=== PATIENT | female | born 1950 | race Caucasian/White ===

== ENCOUNTER 2017-10-06 01:49 | Emergency (ER) | payer MEDICARE, MEDICAID ==
[2017-10-06] MEDS ORDERED: diPHENhydraMINE PO* 25 MG PO ONE (02:17)
[2017-10-06] MEDS ORDERED: Triamcinolone 0.5% OINT * 15 GM TUBE TOPICAL ONE (02:22)
--- NOTE | 2017-10-06 02:28 | ED ---
Allergic Reaction/Systemic - HPI Summary HPI Summary: Patient is an otherwise healthy 67-year-old female he denies any known allergies presenting to the ED with erythema to the chin and to the left eye. She feels that there may have been poison oak to the area. There was a small amount of serous yellow drainage from 2 small blisters which erupted 2 days ago. History of cellulitis to the face, but states this feels different. She denies any visual changes. She has tried calamine lotion without relief. Denies any other symptoms including fevers, sweats, chills. Denies change of soaps, detergents or other allergic contacts. - History of Current Complaint Chief Complaint: EDRashSkinAbscess Time Seen by Provider: 10/06/17 02:04 Hx Obtained From: Patient Onset/Duration: Sudden Onset Timing: Constant Severity Initially: Moderate Severity Currently: Moderate Pain Intensity: 6 Pain Scale Used: 0-10 Numeric Location: Discrete @ - chin and left eye Alleviating Factor(s): Cold Associated Signs And Symptoms: Positive: Negative - Related Hx Possible Reaction To: Environmental Exposure - Allergies/Home Medications Allergies/Adverse Reactions: Allergies Allergy/AdvReac Type Severity Reaction Status Date / Time No Known Allergies Allergy Verified 10/18/14 12:38 PMH/Surg Hx/FS Hx/Imm Hx Previously Healthy: Yes Endocrine/Hematology History: Denies: Hx Diabetes Cardiovascular History: Reports: Hx Hypertension - not on meds Denies: Hx Congestive Heart Failure Respiratory History: Reports: Hx Asthma, Hx Chronic Obstructive Pulmonary Disease (COPD) History: Denies: Hx Renal Disease - Surgical History Surgery Procedure, Year, and Place: tubal; elective Ab; left 2nd finger - Immunization History Hx Pertussis Vaccination: No Immunizations Up to Date: Unable to Obtain/Confirm Infectious Disease History: No Infectious Disease History: Denies: Hx Clostridium Difficile, Hx Hepatitis, Hx Human Immunodeficiency Virus (HIV), Hx of Known/Suspected MRSA, Hx Shingles, Hx Tuberculosis, Hx Known/ Suspected VRE, Hx Known/Suspected VRSA, History Other Infectious Disease, Traveled Outside the [place] in Last 30 Days - Social History Occupation: Unemployed Lives: With Family Alcohol Use: Daily Alcohol Amount: 5 beers/day Hx Substance Use: No Substance Use Type: Reports: None Hx Tobacco Use: Yes Smoking Status (MU): Heavy Every Day Tobacco Smoker Amount Used/How Often: less than 1 ppd Review of Systems Constitutional: Negative Negative: Fever, Chills, Fatigue, Skin Diaphoresis Negative: Palpitations, Chest Pain Negative: Shortness Of Breath, Cough Genitourinary: Negative Positive: no symptoms reported, see HPI Negative: Arthralgia, Myalgia Positive: Rash - chin and left eye Neurological: Negative All Other Systems Reviewed And Are Negative: Yes Physical Exam Triage Information Reviewed: Yes Vital Signs On Initial Exam: Initial Vitals Temp Pulse Resp BP Pulse Ox 97.7 F 66 20 184/93 97 10/06/17 01:52 10/06/17 01:52 10/06/17 01:52 10/06/17 01:52 10/06/17 01:52 Vital Signs Reviewed: Yes Appearance: Positive: Well-Appearing, Well-Nourished Skin: Positive: Warm, Skin Color Reflects Adequate Perfusion, Other - serous yellow drainage from 2 small blisters inside a surrounding erythematous slightly raised area to the chin resembling a poison oak contact dermatitis Head/Face: Positive: Normal Head/Face Inspection Eyes: Positive: EOMI, TONI, Conjunctiva Clear, Other: - no conjunctival injection Neck: Positive: Supple, No Lymphadenopathy Respiratory/Lung Sounds: Positive: Clear to Auscultation, Breath Sounds Present Cardiovascular: Positive: RRR Musculoskeletal: Positive: Strength/ROM Intact Neurological: Positive: Speech Normal Psychiatric: Positive: Affect/Mood Appropriate AVPU Assessment: Alert Diagnostics - Vital Signs Vital Signs Temp Pulse Resp BP Pulse Ox 10/06/17 01:52 97.7 F 66 20 184/93 97 - Laboratory Lab Statement: Any lab studies that have been ordered have been reviewed, and results considered in the medical decision making process. Allergic Reaction Course/Dx - Course Course Of Treatment: During the course of treatment, the patient is evaluated for an erythematous chin without warmth. The area appears to be slightly rough , with yellow serous fluid from 2 very small blisters. Resembles poison oak. Also with left eye erythema without swelling, drainage, infiltrate to the eye, conjunctival injection. She is given a triamcinolone steroid for the chin however she will only use this twice daily 3 days to avoid any discoloration or thinning of the skin. Otherwise she will use hydrocortisone cream and will wash hands frequently. She is also given a steroid 40 mg 3 days and 20 mg 3 days following as a taper. While this is likely a poison oak/allergic contact dermatitis, I am unable to rule out completely a cellulitis, however the area is not warm and there is no streaking present. Denies trismus. Patient is able to move jaw about freely and denies any dysphagia or odynophagia. Denies any shortness of breath or other allergic/anaphylactic symptoms. - Diagnoses Provider Diagnoses: Contact dermatitis Discharge - Sign-Out/Discharge Documenting (check all that apply): Discharge/Admit/Transfer - Discharge Plan Condition: Stable Disposition: HOME Prescriptions: predniSONE TAB* [Deltasone 20 MG TAB*] 40 mg PO DAILY #9 tab Patient Education Materials: Poison Lorna (ED), Cold Compress or Soak (ED) Referrals: Eugene Ramirez MD [Primary Care Provider] - Additional Instructions: You have an allergic reaction This COULD be a reaction from poison lorna or poison oak Hydrocortisone cream twice daily and apply triamcinolone cream twice daily ( limit this to only 3 days) Continue with hydrocortisone cream until symptoms resolve Prednisone 40mg daily in the morning x 3 days, then Prednisone 20mg in the morning x 3 days If symptoms worsen or persist, return to the ED If you develop fevers, sweats, chills, worsening redness and warmth with spreading of redness - return to the ED Do not apply any creams to the eye! Wash hands frequently - Billing Disposition and Condition Condition: STABLE Disposition: Home
[2017-10-06 02:41] VITALS: BP 00/0
[2017-10-06] MEDS ORDERED: Triamcinolone 0.5% CREAM(NF) 15 GM TUBE TOPICAL SCH (09:00)
== END 2017-10-06 02:40 | disposition home or self-care (01) ==
LOC: ED 01:49
DX: L25.9 Unspecified contact dermatitis, unspecified cause (principal); R21 Rash and other nonspecific skin eruption; F17.210 Nicotine dependence, cigarettes, uncomplicated
CPT/HCPCS: 99281; A9270-GY

== ENCOUNTER 2018-12-14 19:19 | Observation (INO) | payer MEDICARE, MEDICAID ==
[2018-12-14] MEDS ORDERED: Albuterol/Ipratropium NEB.SOL* Albuterol 2.5 MG/Ipratropium 0.5 MG 3 ML INH ONE ×2 (19:33→19:34)
[2018-12-14] MEDS ORDERED: methylPREDNISolone 125 MG* 2 ML VIAL IV ONE (19:34)
--- NOTE | 2018-12-14 19:48 | ED ---
Shortness of Breath - HPI Summary HPI Summary: 68 year old F presenting to [facility] accompanied by daughter complains of shortness of breath for a few days. The patient rates the pain 0/10 in severity. Symptoms aggravated by nothing. Symptoms alleviated by nebulizer treatment, last given by daughter yesterday. - History of Current Complaint Chief Complaint: EDShortnessOfBreath Time Seen by Provider: 12/14/18 19:32 Hx Obtained From: Patient, Family/Air Quality Manager - daughter Onset/Duration: Lasting Days, Still Present Timing: Constant Current Severity: None Aggravating Factors: Nothing Alleviating Factors: Other - nebulizer treatment - Allergy/Home Medications Allergies/Adverse Reactions: Allergies Allergy/AdvReac Type Severity Reaction Status Date / Time No Known Allergies Allergy Verified 12/14/18 19:24 PMH/Surg Hx/FS Hx/Imm Hx Endocrine/Hematology History: Denies: Hx Diabetes Cardiovascular History: Reports: Hx Hypertension - not on meds Denies: Hx Congestive Heart Failure Respiratory History: Reports: Hx Asthma, Hx Chronic Obstructive Pulmonary Disease (COPD) History: Denies: Hx Renal Disease - Surgical History Surgery Procedure, Year, and Place: tubal; elective Ab; left 2nd finger Infectious Disease History: No Infectious Disease History: Denies: Hx Clostridium Difficile, Hx Hepatitis, Hx Human Immunodeficiency Virus (HIV), Hx of Known/Suspected MRSA, Hx Shingles, Hx Tuberculosis, Hx Known/ Suspected VRE, Hx Known/Suspected VRSA, History Other Infectious Disease, Traveled Outside the [place] in Last 30 Days - Family History Known Family History: Positive: Other - NEG: breast cancer - Social History Alcohol Use: Daily Alcohol Amount: 5 beers/day Hx Substance Use: No Substance Use Type: Reports: None Hx Tobacco Use: Yes Smoking Status (MU): Heavy Every Day Tobacco Smoker Amount Used/How Often: less than 1 ppd Review of Systems Negative: Fever Positive: Shortness Of Breath All Other Systems Reviewed And Are Negative: Yes Physical Exam - Summary Physical Exam Summary: Appearance: The patient is well-nourished in no acute distress and in no acute pain. Patient is tachypneic Skin: The skin is warm and dry, and skin color reflects adequate perfusion. HEENT: The head is normocephalic and atraumatic. The pupils are equal and reactive. The conjunctivae are clear and without drainage. Nares are patent and without drainage. Mouth reveals moist mucous membranes, and the throat is without erythema and exudate. The external ears are intact. The ear canals are patent and without drainage. The tympanic membranes are intact. Neck: The neck is supple with full range of motion and non-tender. There are no carotid bruits. There is no neck vein distension. Respiratory: Chest is non-tender. Increased E to I time, wheezes, decreased breath sounds Cardiovascular: Heart is regular rate and rhythm. There is no murmur or rub auscultated. There is no peripheral edema and pulses are symmetrical and equal. Abdomen: The abdomen is soft and non-tender. There are normal bowel sounds heard in all four quadrants and there is no organomegaly palpated. Musculoskeletal: There is no back tenderness noted. Extremities are non-tender with full range of motion. There is good capillary refill. There is no peripheral edema or calf tenderness elicited. Neurological: Patient is alert and oriented to person, place and time. The patient has symmetrical motor strength in all four extremities. Cranial nerves are grossly intact. Deep tendon reflexes are symmetrical and equal in all four extremities. Psychiatric: The patient has an appropriate affect and does not exhibit any anxiety or depression. Triage Information Reviewed: Yes Vital Signs On Initial Exam: Initial Vitals Temp Pulse Resp BP Pulse Ox 97.7 F 90 32 202/128 97 12/14/18 19:22 12/14/18 19:22 12/14/18 19:22 12/14/18 19:22 12/14/18 19:22 Vital Signs Reviewed: Yes Diagnostics - Vital Signs Vital Signs Temp Pulse Resp BP Pulse Ox 12/14/18 19:22 97.7 F 90 32 202/128 97 - Laboratory Result Diagrams: 12/14/18 19:51 12/14/18 19:51 Lab Statement: Any lab studies that have been ordered have been reviewed, and results considered in the medical decision making process. - Radiology CXR Radiology Interpretation Completed By: ED Physician Summary of Radiographic Findings: hyperinflation. pending official report - EKG 1939 Cardiac Rate: NL - 93 BPM EKG Rhythm: Sinus Rhythm Summary of EKG Findings: Normal sinus rhythm 93 BPM, normal ST, no ectopy, no STEMI Re-Evaluation - Re-Evaluation First Eval Re-Evaluation Time: 19:55 Change: Improved - patient is doing better on BiPAP Course/Dx - Course Course Of Treatment: Ms. Moran came in with clear respiratory distress. She was using accessory muscles, tachypnea and wheezing with decreased breath sounds. She was given duo neb and Solu-Medrol and placed on BiPAP. She did feel quite a bit improved with that. I contacted the hospitalist for evaluation for admission. - Diagnoses Provider Diagnoses: COPD exacerbation - Physician Notifications Discussed Care of Patient With: Pineda Mark Time Discussed With Above Provider: 20:35 Instructed by Provider To: Other - Dr. Mark, hospitalist, agrees to admit patient - Critical Care Time Critical Care Time: 30-74 min Discharge ED - Sign-Out/Discharge Documenting (check all that apply): Patient Departure - Admit Patient Received Moderate/Deep Sedation with Procedure: No - Discharge Plan Condition: Improved Disposition: ADMITTED TO [facility] Referrals: Eugene Ramirez MD [Primary Care Provider] - - Billing Disposition and Condition Condition: IMPROVED Disposition: Admitted to [facility] - Attestation Statements Document Initiated by Traibe: Yes Documenting Scribe: Jeannie Oviedo Provider For Whom Traibe is Documenting (Include Credential): Jerry Shore MD Scribe Attestation: I, Jeannie Oviedo, scribed for Jerry Shore MD on 12/14/18 at 2111. Scribe Documentation Reviewed: Yes Provider Attestation: The documentation as recorded by the traibJeannie gould accurately reflects the service I personally performed and the decisions made by me, Jerry Shore MD Status of Scribe Document: Viewed
[2018-12-14 19:58] LABS: ABS Basophils 0.1 10^3/ul (0-0.2); ABS Eosinophils 0.2 10^3/ul (0-0.6); ABS Lymphocytes 2.1 10^3/ul (1.0-4.8); ABS Monocytes 0.7 10^3/ul (0-0.8); Eosinophil % 3.3 %; Hematocrit 41 % (35-47); Hemoglobin 14.1 g/dL (12.0-16.0); Lymphocyte % 30.1 %; Mean Corpuscular HGB Conc 35 g/dL (31-36); Mean Corpuscular Hemoglobin 34 pg (27-31); Mean Corpuscular Volume 98 fL (80-97); Mean Platelet Volume 7.4 fL (7.4-10.4); Nucleated Red Blood Cells % 0.1; Platelet Count 255 10^3/uL (150-450); Red Blood Count 4.17 10^6 /uL (3.70-4.87); Red Cell Distribution Width 13 % (10-15); White Blood Count 7.1 10^3/uL (3.5-10.8)
[2018-12-14 20:29] LABS: Albumin 4.4 g/dL (3.2-5.2); Albumin/Globulin Ratio 1.8 (1-3); BUN/Creatinine Ratio 16.7 (8-20); C Reactive Protein 1.01 mg/L (<8.01); Calcium 9.6 mg/dL (8.6-10.3); EGFR African American 89.1 (>60); EGFR Non-African American 73.7 (>60); Globulin 2.5 g/dL (2-4); Potassium 4.2 mmol/L (3.5-5.0); Total Bilirubin 0.3 mg/dL (0.2-1.0); Total Protein 6.9 g/dL (6.4-8.9)
[2018-12-14] MEDS ORDERED: Thiamine INJ* 100 MG/ML 2 ML VIAL IM ONE (21:55)
[2018-12-14] MEDS ORDERED: LORazepam TAB(*) 1 MG PO SCH (22:00)
[2018-12-14] MEDS ORDERED: Azithromycin 500 mg/250 mL NS BAG IVPB ONE (22:00)
--- NOTE | 2018-12-14 23:34 | HP ---
CC: Zaira Stuart NP * HISTORY AND PHYSICAL: DATE OF ADMISSION: 12/14/18 PRIMARY CARE PHYSICIAN: Zaira Stuart NP CHIEF COMPLAINT: Shortness of breath. HISTORY OF PRESENT ILLNESS: This is a 68-year-old female with past medical history of COPD, emphysema, still actively smokes about a pack a day and has been doing so for 50 years, history of alcohol use, came in due to shortness of breath. The patient stated that she was in her usual state of health up until about 4 to 5 days ago when she started having shortness of breath. She also stated that she had a change in her prescription and has been off her Symbicort for almost over a week. She did try her grandson's albuterol nebulization, which helped her little bit but still worsened her symptoms, so she decided to come to the ER. She has been having cough, which is productive of mostly clear sputum but sometimes yellow tinged. No fever, chills, and was feeling little lightheaded and dizzy when she came into the ER. Initially, she was very short of breath and was breathing very rapidly but after the ER intervention, she states that she felt significantly better. She otherwise offers no chest pain, nausea, vomiting, any headache, or chills. She did state incidentally she has been having urinary incontinence at times. She was not able to quantify exactly if it was just due to cough but she states that it does happen when she coughs but she is not able to quantify the amount of urine that she has whether it is just a small dribble versus clear-cut urination. PAST MEDICAL HISTORY: As mentioned, COPD and emphysema and still an active smoker. She thought she might have some congestive heart failure but denies any high blood pressure, diabetes, or previous heart attack and denies taking any medications, which is a diuretic. PAST SURGICAL HISTORY: Includes tubal ligation and left index finger surgery from a trauma for which she had a bone removed from her right hip. She has also had a collar bone fracture on the right side, which did not require any surgical correction. HOME MEDICATIONS: The patient is currently only using albuterol nebulizer that she borrows from her grandson and has not been able to fill up her Symbicort. ALLERGIES: No known drug allergies. FAMILY HISTORY: Father at age 74 due to emphysema and COPD exacerbation. Mother at age 85 due to Alzheimer's disease and complications. SOCIAL HISTORY: The patient smokes about a pack per day and has been doing so for 50 years and is thinking about quitting. She also states that she drink alcohol to the point of passing out usually 6 packs of beer. She stated that the last use was over a week ago but daughter was present at bedside and suggested that she might have had alcohol about 3 days ago. She denies any withdrawal. She does have some guilt associated with her drinking and is thinking about cutting it down, but does not think that she is an alcoholic at this point. She denies any other drug use. 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 REVIEW OF SYSTEMS: A 14-point review of systems did not reveal any new information other than the one stated in the HPI. PHYSICAL EXAMINATION GENERAL: The patient is awake, alert, oriented x3, does not appear to be in any acute respiratory distress. VITAL SIGNS: In the ER, BP was noted to be 116/77, heart rate 88, respiration rate 16, saturating 98% on 2 L nasal cannula. Temperature was recorded at 97.7. HEAD AND NECK: Atraumatic, normocephalic. Bilateral pupils are reactive. Oral mucosa was moist. NECK: No jugular venous distention. LUNGS: Clear to auscultation bilaterally. No wheezing, rhonchi, or rales. HEART: S1, S2. Regular rate and rhythm. ABDOMEN: Soft, nontender, nondistended. EXTREMITIES: No cyanosis, clubbing, or edema. DIAGNOSTIC STUDIES/LAB DATA: CBC was unremarkable. Coagulation profile shows normal INR of 1.0. Comprehensive metabolic panel was unremarkable except for minimally elevated random glucose at 111. BNP was noted to be 17. Lactic acid 0.9. ABG performed on BiPAP shows pH of 7.32, pCO2 of 37, PaO2 of 176, and oxygen saturation of 100%. Portable chest x-ray shows some emphysematic changes but otherwise no infiltrates. Official read by radiologist is pending. EKG showed sinus rhythm at 93 beats per minute without any ST elevation. When compared to her previous EKG from 2015, there is no significant change in the waveform other than today's EKG had a lot more artifact and background noise. IMPRESSION: This is a 68-year-old female with chronic obstructive pulmonary disease here due to exacerbation of chronic obstructive pulmonary disease due to medication noncompliance from her insurance problem. ASSESSMENT AND PLAN: 1. Chronic obstructive pulmonary disease exacerbation due to medication noncompliance. We will start the patient on steroids. We will get azithromycin for antiinflammatory effect along with DuoNebs. I will also restart her home Symbicort and consider social service agency director consultation or case management consultation in the morning regarding getting her insurance to approve one of the inhaled corticosteroids for her long-term control. 2. History of chronic smoking. We will start the patient on nicotine patch and smoking cessation was advised heavily. 3. History of alcohol use. Although, the patient is minimizing her use, daughter suggests the patient might be heavy alcoholic. We will place the patient on WAM protocol and start thiamine and other multivitamin, but the patient obviously does not have any symptoms at this point. Further treatment based on WAM monitoring number. 4. Code status. The patient is a full code. 5. DVT prophylaxis with sequential compression devices. [id number]/[facility] #: [id number] ANTOINE
[2018-12-14] MEDS: Albuterol/Ipratropium NEB.SOL* Albuterol 2.5 MG/Ipratropium 0.5 MG 3 ML INH SCH (23:54)
[2018-12-15] MEDS: Albuterol/Ipratropium NEB.SOL* Albuterol 2.5 MG/Ipratropium 0.5 MG 3 ML INH SCH (03:27)
[2018-12-15 05:43] LABS: ABS Lymphocytes 0.5 10^3/ul (1.0-4.8); ABS Monocytes 0.1 10^3/ul (0-0.8); ABS Neutrophils 3.7 10^3/ul (1.5-7.7); Eosinophil % 0.1 %; Hematocrit 38 % (35-47); Hemoglobin 13.1 g/dL (12.0-16.0); Lymphocyte % 11.8 %; Mean Corpuscular HGB Conc 34 g/dL (31-36); Mean Corpuscular Hemoglobin 34 pg (27-31); Mean Corpuscular Volume 98 fL (80-97); Mean Platelet Volume 7.7 fL (7.4-10.4); Nucleated Red Blood Cells % 0.1; Platelet Count 230 10^3/uL (150-450); Red Blood Count 3.89 10^6 /uL (3.70-4.87); Red Cell Distribution Width 13 % (10-15); White Blood Count 4.3 10^3/uL (3.5-10.8)
[2018-12-15 05:58] LABS: BUN/Creatinine Ratio 15.5 (8-20); Calcium 9.1 mg/dL (8.6-10.3); EGFR African American 99.4 (>60); EGFR Non-African American 82.1 (>60); Potassium 4.3 mmol/L (3.5-5.0)
[2018-12-15] MEDS: Mometasone/Formoter 200/5 MDI INH SCH ×2 (07:41→20:34)
[2018-12-15] MEDS: Nicotine PATCH 21 MG/24 HR* PATCH TRANSDERM SCH (07:49)
[2018-12-15] MEDS: methylPREDNISolone SOD 40 MG* 1 ML VIAL IV SCH ×2 (08:38→21:24)
[2018-12-15] MEDS: Multivitamins/Minerals TAB PO SCH (08:38)
[2018-12-15] MEDS: Thiamine TAB* 100 MG TAB PO SCH (08:39)
[2018-12-15] MEDS: Folic Acid TAB* 1 MG PO SCH (08:39)
--- NOTE | 2018-12-15 10:55 | PN ---
Subjective Date of Service: 12/15/18 Interval History: HOSPITALIST PROGRESS NOTE Patient seen and examined at bedside. Care reviewed and d/w Julieta Marshall RN. She feels a little better today. Dyspnea is less intense, but breathing is not back to normal. She states she recently switched insurances, and when she called [facility] she was not able to get a refill of her Symbicort, but unsure exactly why. Family History: Unchanged from Admission Social History: Unchanged from Admission Past Medical History: Unchanged from Admission Objective Active Medications: Albuterol/Ipratropium (Duoneb (Albuterol 2.5 Mg/Ipratropium 0.5 Mg)) 1 neb INH Q4H PRN PRN Reason: SOB/WHEEZING Folic Acid (Folvite Tab*) 1 mg PO DAILY [facility] Last Admin: 12/15/18 08:39 Dose: 1 mg Azithromycin (Zithromax 500 Mg/250 Ml) 500 mg in 250 mls @ 250 mls/hr IVPB Q24H [facility] Lorazepam (Ativan Tab(*)) 0 - 6 mg PO .PER [facility] PROTOCOL [facility]; Protocol Methylprednisolone Sodium Succinate (Solu-Medrol 40 Mg) 40 mg IV Q12H [facility] Last Admin: 12/15/18 08:38 Dose: 40 mg Mometasone Furoate/Formoterol Fumar (Dulera 200/5 Mdi*) 2 puff INH BID [facility]; Protocol Last Admin: 12/15/18 07:41 Dose: 2 puff Multivitamins/Minerals (Theragran/Minerals Tab*) 1 tab PO DAILY [facility] Last Admin: 12/15/18 08:38 Dose: 1 tab Nicotine (Nicotine Patch 21 Mg/24 Hr*) 1 patch TRANSDERM DAILY@0800 [facility] Last Admin: 12/15/18 07:49 Dose: 1 patch Pharmacy Profile Note (Nicotine Patch Removal Note*) 1 note PATCH OFF 2100 [facility] Thiamine HCl (Vitamin B-1 Tab*) 100 mg PO DAILY [facility] Last Admin: 12/15/18 08:39 Dose: 100 mg Vital Signs - 8 hr 12/15/18 12/15/18 12/15/18 03:00 03:33 05:00 Temperature 97.0 F Pulse Rate 80 Respiratory 17 17 22 Rate Blood Pressure 114/61 (mmHg) O2 Sat by Pulse 100 Oximetry 12/15/18 12/15/1812/15/19 05:27 05:49 07:15 Temperature 96.9 F 98.1 F 97.9 F Pulse Rate 81 95 82 Respiratory 16 22 18 Rate Blood Pressure 100/58 110/75 103/56 (mmHg) O2 Sat by Pulse 99 98 94 Oximetry 12/15/18 12/15/18 07:44 08:00 Temperature Pulse Rate 82 Respiratory 14 20 Rate Blood Pressure (mmHg) O2 Sat by Pulse 98 Oximetry Oxygen Devices in Use Now: None Appearance: Pleasant elderly lady lying in bed in NAD Eyes: No Scleral Icterus Ears/Nose/Mouth/Throat: Mucous Membranes Moist Neck: Trachea Midline Respiratory: Symmetrical Chest Expansion and Respiratory Effort, - - BS+ bilaterally diminished with scattered wheezes and rhonchi Cardiovascular: RRR - Normal S1 and S2 Abdominal: NL Sounds; No Tenderness; No Distention, - - Small epigastric hernia , about 3-4 cm above umbilicus, not tender, reducible Extremities: No Edema Neurological: Alert and Oriented x 3, NL Muscle Strength and Tone Result Diagrams: 12/15/18 05:11 12/15/18 05:11 Microbiology and Other Data: Microbiology 12/15/18 08:00 Gram Stain - Final Sputum Expectorated Assess/Plan/Problems-Billing Assessment: Mrs Moran is a 68yo F with PMH of COPD, tobacco abuse, possible ETOH abuse, who presented to ED with c/o dyspnea after running out of Symbicort, found to have COPD exacerbation. - Patient Problems (1) COPD exacerbation Comment: - Secondary to Symbicort non compliance. - CM to assist with prescriptions and insurance auth. - Continue Azithromycin, steroids, bronchodilators. (2) Tobacco abuse Comment: - Educated about need for tobacco cessation. - Continue nicotine supplementation. (3) Alcohol use Comment: - No signs of withdrawal. Unclear how much she really drinks. - Continue to monitor. (4) DVT prophylaxis Comment: - SCDs. (5) Full code status Status and Disposition: OBV. CM to assist with medication. Anticipate d/c in AM.
[2018-12-15 11:47] LABS: Urine Appearance Clear; Urine Bilirubin Negative (Negative); Urine Blood Negative (Negative); Urine Color Yellow; Urine Glucose Negative (Negative); Urine Ketones Negative (Negative); Urine Nitrite Negative (Negative); Urine Protein Negative (Negative); Urine Specific Gravity 1.016 (1.010-1.030); Urine Urobilinogen Negative (Negative)
[2018-12-15] MEDS: Albuterol/Ipratropium NEB.SOL* Albuterol 2.5 MG/Ipratropium 0.5 MG 3 ML INH PRN (17:59)
[2018-12-15] MEDS ORDERED: Nicotine Patch Removal NOTE PATCH OFF SCH (21:00)
[2018-12-15] MEDS ORDERED: Azithromycin 500 mg/250 ml NS 500 MG/250 ML BAG IVPB SCH (22:00)
[2018-12-16] MEDS: Albuterol/Ipratropium NEB.SOL* Albuterol 2.5 MG/Ipratropium 0.5 MG 3 ML INH PRN ×2 (06:32→12:25)
[2018-12-16] MEDS: Mometasone/Formoter 200/5 MDI INH SCH ×2 (06:40→07:06)
[2018-12-16] MEDS: methylPREDNISolone SOD 40 MG* 1 ML VIAL IV SCH (09:33)
[2018-12-16] MEDS: Multivitamins/Minerals TAB PO SCH (09:33)
[2018-12-16] MEDS: Folic Acid TAB* 1 MG PO SCH (09:33)
[2018-12-16] MEDS: Thiamine TAB* 100 MG TAB PO SCH (09:33)
[2018-12-16] MEDS: Nicotine PATCH 21 MG/24 HR* PATCH TRANSDERM SCH (09:33)
[2018-12-16 13:26] VITALS: BP 128/77
--- NOTE | 2018-12-16 20:13 | DS ---
DISCHARGE SUMMARY: DATE OF ADMISSION: 12/14/18 DATE OF DISCHARGE: 12/16/18 PRIMARY DIAGNOSES: 1. Chronic obstructive pulmonary disease exacerbation. 2. Bronchitis. 3. Alcohol abuse. SECONDARY DIAGNOSES: 1. Questionable congestive heart failure. 2. Alcohol use disorder. 3. 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 HOSPITAL COURSE: 1. A 68-year-old female with past medical history of COPD, emphysema type, still actively smoking about a pack a day for about 50 years, history of significant alcohol use, came in with symptoms of shortness of breath. The patient reports shortness of breath for the last 4 to 5 days leading up to admission. Please refer to the detailed history and physical dictated by Dr. Mark per initial presentation. The patient also has not been on Symbicort for a few days. The patient's x-ray showed emphysematous changes, but no significant infiltrate suggestive of active pneumonia. Her BNP was noted to be 17. The patient was saturating 98% on 2 L nasal cannula. The patient was placed in observation status for COPD exacerbation. The patient was started on Solu-Medrol and at time of discharge, being discharged on a Medrol Dosepak. The patient also was started on azithromycin for its antiinflammatory effects and to cover for bronchitis. The patient is being on Z-Chevy. 2. Smoking cessation counseling also provided to the patient and the patient reports that she will discuss this further with her primary care doctor. The patient is also minimizing her use, but daughter suggested that the patient may be heavy alcohol user. The patient was not noted to be in withdrawal during her hospital course. 3. At time of exam today, the patient reports that she feels significantly better. The patient does not have any audible wheezes on exam and saturating well and not desatting on ambulation. In light of this, the patient will be discharged today with Z-Chevy and steroids as discussed above. The patient also wants to have a nebulizer for p.r.n. use and this has been provided and the patient also has a prescription from Symbicort already ready for pickup at [facility]. CONDITION: Stable. DISPOSITION: The patient is being discharged home. LABORATORY DATA: WBC 4.3, hemoglobin 13.1, hematocrit 38, platelets noted to 230. Sodium 137, potassium 4.3, chloride 107, CO2 of 25, BUN 11, creatinine 0.7. IMAGING: Chest x-ray, findings consistent with COPD, no evidence of acute disease. This was done on 12/14/18. PHYSICAL EXAM: HEENT: NCAT. Heart: S1, S2 present. Regular at the time of exam. Lungs: Clear to auscultation. Decreased breath sounds bilaterally. Abdomen: Soft. Extremities: No edema. Neuro: Alert, oriented. MEDICATION LIST: 1. Z-Chevy, take as directed. 2. Medrol Dosepak, take as directed. 3. DuoNeb for p.r.n. rescue use. 4. Symbicort 160/4.5 two puffs inhalation b.i.d. 5. The patient has albuterol inhaler. INSTRUCTIONS: The patient to follow up with her PCP in a week. TIME SPENT: Total time spent on discharge is equal to 45 minutes. [id number]/CPS #: [id number] MTDD
== END 2018-12-16 15:10 | disposition home or self-care (01) ==
LOC: ED 19:19 → MED 21:39
PROVIDERS: ADMIT Internal Medicine; ATTEND Internal Medicine
DX: J44.1 Chronic obstructive pulmonary disease with (acute) exacerbation (principal); J40 Bronchitis, not specified as acute or chronic; F10.10 Alcohol abuse, uncomplicated; I10 Essential (primary) hypertension; F17.210 Nicotine dependence, cigarettes, uncomplicated; R94.31 Abnormal electrocardiogram [ECG] [EKG]; R06.02 Shortness of breath
CPT/HCPCS: 36415; 71045; 80048; 80053; 81003; 82803; 83605; 83880; 84484; 85025; 85610; 86140; 87040; 87070; 87205; 93005; 94640; 96372; 96374; 96375; 96376; 99284; 99406; A9270-GY; G0378; J0456; J2920; J2930; J3411